=== PATIENT | female | born 1950 | race Caucasian/White ===

== ENCOUNTER 2016-09-09 18:29 | Emergency (ER) | payer MEDICARE | END 2016-09-09 19:37 | disposition home or self-care (01) | LOC: ER 18:29 | DX: J20.9 Acute bronchitis, unspecified (principal); J34.89 Other specified disorders of nose and nasal sinuses; M06.9 Rheumatoid arthritis, unspecified; F17.210 Nicotine dependence, cigarettes, uncomplicated; Z79.899 Other long term (current) drug therapy | CPT/HCPCS: 71020; 99283 ==